=== PATIENT | female | born 2000 | race Caucasian/White ===

== ENCOUNTER 2021-01-10 12:43 | Emergency (ER) | payer OTHER ==
[~2021-01-10] VITALS: Ht 167.6 cm; Wt 80.0 kg
[2021-01-10] MEDS ORDERED: TEST200I15 IM (13:00)
[2021-01-10] MEDS ORDERED: DERMABOND TOPICAL SKIN ADHESIVE TOP ONE (15:45)
[2021-01-10] MEDS ORDERED: BOOSTRIX/ADACEL VACCINE (DIPHTH/PERTUSS/ACELL/TETANUS) 0.5ML SYR IM ONE (15:45)
[2021-01-10 16:11] VITALS: BP 126/73
== END 2021-01-10 16:17 | disposition home or self-care (01) ==
LOC: M ED 12:43
DX: S61.213A Laceration without foreign body of left middle finger without damage to nail, initial encounter (principal); W26.8XXA Contact with other sharp object(s), not elsewhere classified, initial encounter; Y92.511 Restaurant or cafe as the place of occurrence of the external cause; Y93.G1 Activity, food preparation and clean up; Y99.0 Civilian activity done for income or pay; Z79.890 Hormone replacement therapy; Z91.048 Other nonmedicinal substance allergy status

== ENCOUNTER → 2021-07-13 | Outpatient (REF) | payer OTHER, MEDICAID ==
[~2021-07-13] MED LIST: TEST200I15 IM
== END ==
LOC: M LAB REF 12:00
PROVIDERS: ATTEND Physician Assistant Medical
DX: J02.9 Acute pharyngitis, unspecified (principal)

== ENCOUNTER → 2021-10-13 | Outpatient (CLI) | payer OTHER, MEDICAID | LOC: M SLEEP 20:00 | PROVIDERS: ATTEND Physician Assistant | DX: R40.0 Somnolence (principal); R06.83 Snoring ==

== ENCOUNTER → 2021-12-11 | Outpatient (CLI) | payer OTHER, MEDICAID ==
[~2021-12-11] MED LIST changes: +BUPR150T12 PO; +GOOD8.6T2 PO; +LEVO75TA4 PO; +TOPI25TA10 PO
== END ==
LOC: M LABSMTC 10:49
PROVIDERS: ATTEND Anesthesiology
DX: Z01.818 Encounter for other preprocedural examination (principal); Z11.52 Encounter for screening for COVID-19

== ENCOUNTER 2021-12-16 06:09 | Observation (INO) | payer OTHER, MEDICAID ==
[~2021-12-16] VITALS: Ht 167.6 cm; Wt 75.7 kg
[2021-12-16] VITALS (7 sets, daily range): BP systolic 112–138; BP diastolic 61–81
[~2021-12-16 06:09] MED LIST changes: +ceFAZolin SOD 2 GM in IV 1 EA IV ONE
[2021-12-16] MEDS ORDERED: BUPIVACAINE HCL 0.25% 10ML VIAL As Ordered ONE (07:16)
[2021-12-16] MEDS ORDERED: GENTAMICIN SULF 80MG/2ML VIAL As Ordered ONE (07:16)
[2021-12-16] MEDS ORDERED: BUPIVACAINE LIPOSOME/PF 1.3% 20ML VIAL (13.3MG/ML)(EXPAREL) As Ordered ONE (07:16)
[2021-12-16] MEDS ORDERED: LR 1,000 ML IV SCH ×2 (07:20→11:15)
[2021-12-16] MEDS ORDERED: INSULIN LISPRO (NovoLOG) PER UNIT SC PRN ×2 (07:20→11:15)
[2021-12-16] MEDS ORDERED: propofoL 200 MG/20 ML VIAL As Ordered ONE (07:27)
[2021-12-16] MEDS ORDERED: dexameTHASONE 4 MG/ML 1ML VIAL (J1100 PER 1MG) As Ordered ONE (07:27)
[2021-12-16] MEDS ORDERED: LIDOCAINE 2% 100MG/5ML SDV (FOR ANES.) As Ordered ONE (07:27)
[2021-12-16] MEDS ORDERED: ROCURONIUM BROMIDE 50 MG/5 ML VIAL As Ordered ONE ×2 (07:27→08:38)
[2021-12-16] MEDS ORDERED: ONDANSETRON 4MG/2ML VIAL As Ordered ONE (07:27)
[2021-12-16] MEDS ORDERED: fentaNYL 250 MCG/5 ML INJECTION As Ordered ONE (07:28)
[2021-12-16] MEDS ORDERED: MIDAZOLAM INJ 2MG/2ML VIAL (J2250 PER 1MG) As Ordered ONE (07:29)
[2021-12-16] MEDS ORDERED: HEPARIN SOD (PORCINE) 5000UNITS/ML 1ML VIAL/SYRINGE As Ordered ONE (07:49)
[2021-12-16] MEDS ORDERED: SUGAMMADEX SODIUM 500 MG/5 ML VIAL (BRIDION) As Ordered ONE (08:40)
[2021-12-16] MEDS ORDERED: HYDROmorphone HCL 2MG/ML 1ML VIAL As Ordered ONE (08:40)
[2021-12-16] MEDS ORDERED: LACRILUBE (AKWA TEARS) OPHTH OINT 3.5 GM As Ordered ONE (08:40)
[2021-12-16] MEDS ORDERED: PHENYLephrine 500MCG 5ML (100MCG/ML) SYRINGE As Ordered ONE (08:46)
[2021-12-16] MEDS ORDERED: SEVOFLURANE INHAL SOLN 250 ML BTL As Ordered ONE (08:48)
[2021-12-16] MEDS ORDERED: ACETAMINOPHEN 1000MG 100ML IV BTL (OFIRMEV) (J0131 PER 10MG) As Ordered ONE (08:48)
[2021-12-16] MEDS ORDERED: ONDANSETRON 4MG/2ML VIAL IV PRN ×2 (11:10→11:15)
[2021-12-16] MEDS ORDERED: traMADol 50 MG TAB PO PRN (11:10)
[2021-12-16] MEDS ORDERED: KETOROLAC TROMETHAMINE 10 MG TAB PO PRN (11:10)
[2021-12-16] MEDS ORDERED: ACETAMINOPHEN TAB 650MG DOSE (2X325MG) PO PRN (11:10)
[2021-12-16] MEDS ORDERED: METOCLOPRAMIDE INJ 10MG/2ML VIAL (J2765 PER 1) IV PRN (11:15)
[2021-12-16] MEDS ORDERED: HYDROMORPHONE HCL 0.5 MG/ 0.5 ML SYRINGE (J1170 PER 1) IV PRN (11:15)
[2021-12-16] MEDS ORDERED: oxyCODONE 5MG TAB PO PRN (11:15)
[2021-12-16] MEDS ORDERED: fentaNYL 100 MCG/2 ML INJECTION IV PRN (11:15)
[2021-12-16] MEDS: LR 1,000 ML IV SCH (13:50)
[2021-12-16] MEDS ORDERED: ceFAZolin SOD 1 GM in D5W MINI-BAG PLUS 50 ML IV ONE (16:00)
[2021-12-17] MEDS: LR 1,000 ML IV SCH (00:09)
[2021-12-17 02:15] VITALS: BP 118/72
[2021-12-17 05:12] VITALS: BP 111/62
[2021-12-17] MEDS ORDERED: TRAM50TA2 PO (09:49)
== END 2021-12-17 12:15 | disposition home or self-care (01) ==
LOC: M SDC 06:09 → M MS5PR 06:10
PROVIDERS: ADMIT Plastic Surgery Surgery of the Hand; ATTEND Plastic Surgery Surgery of the Hand
DX: F64.9 Gender identity disorder, unspecified (principal); N62 Hypertrophy of breast; J30.2 Other seasonal allergic rhinitis; E06.3 Autoimmune thyroiditis; Z79.899 Other long term (current) drug therapy; Z79.890 Hormone replacement therapy
CPT/HCPCS: 19303; 19350; 81025; 88305; 96374; C9290; J0131; J0690; J1100; J1170; J1580; J1644; J2250; J2370; J2405; J3010

== ENCOUNTER 2022-04-12 18:32 | Emergency (ER) | payer OTHER, MEDICAID ==
[~2022-04-12] VITALS: Ht 167.6 cm; Wt 75.0 kg
[~2022-04-12 18:32] MED LIST changes: +TRAM50TA2 PO; -ceFAZolin SOD 2 GM in IV 1 EA IV ONE
[2022-04-12] MEDS ORDERED: IBUPROFEN 600MG TAB PO ONE (20:35)
[2022-04-12 21:22] VITALS: BP 110/72
== END 2022-04-12 21:26 | disposition home or self-care (01) ==
LOC: M ED 18:32 → EDBD 18:32 → M ED 21:26
DX: Z04.1 Encounter for examination and observation following transport accident (principal); J45.909 Unspecified asthma, uncomplicated; E03.9 Hypothyroidism, unspecified; F32.A Depression, unspecified; F41.9 Anxiety disorder, unspecified; G43.909 Migraine, unspecified, not intractable, without status migrainosus; Z79.899 Other long term (current) drug therapy; Z79.890 Hormone replacement therapy; Z79.3 Long term (current) use of hormonal contraceptives

== ENCOUNTER → 2022-05-29 | Outpatient (CLI) | payer OTHER, MEDICAID | LOC: M RAD 10:34 | PROVIDERS: ATTEND Family Medicine | DX: R10.9 Unspecified abdominal pain (principal); Z53.9 Procedure and treatment not carried out, unspecified reason ==

== ENCOUNTER → 2022-06-08 | Outpatient (CLI) | payer OTHER, MEDICAID | LOC: M PLAIMG 08:15 | PROVIDERS: ATTEND Family Medicine | DX: G44.89 Other headache syndrome (principal) ==

== ENCOUNTER → 2022-07-15 | Outpatient (CLI) | payer OTHER, MEDICAID ==
[~2022-07-15] MED LIST changes: +E-Z-GAS II EFFERVESCENT PACKET (SODIUM BICARB./CITRIC ACID/SIMETHICONE) As Ordered ONE; +E-Z-HD 98% w/w 340GM SUSP BTL As Ordered ONE; +E-Z-PAQUE 96% w/w SUSP 176GM BTL As Ordered ONE
== END ==
LOC: M RAD 08:31
PROVIDERS: ATTEND Family Medicine
DX: M54.9 Dorsalgia, unspecified (principal); R10.9 Unspecified abdominal pain

== ENCOUNTER 2024-07-24 12:00 | Inpatient (IN) | payer OTHER, MEDICAID ==
[~2024-07-24] VITALS: Ht 167.6 cm; Wt 58.2 kg
[~2024-07-24 12:00] MED LIST changes: -E-Z-GAS II EFFERVESCENT PACKET (SODIUM BICARB./CITRIC ACID/SIMETHICONE) As Ordered ONE; -E-Z-HD 98% w/w 340GM SUSP BTL As Ordered ONE; -E-Z-PAQUE 96% w/w SUSP 176GM BTL As Ordered ONE; -GOOD8.6T2 PO; +SENN-117 PO
[2024-07-24 13:06] LABS: HEMATOCRIT 40.3 % (42.0-52.0); HEMOGLOBIN 13.6 g/dl (13.5-17.5); MEAN CORPUSCULAR HGB CONC 33.7 g/dl (32.0-36.5); MEAN CORPUSCULAR VOLUME 91.8 fl (80.0-96.0); PLATELET COUNT, AUTOMATED 246 10^3/uL (150-450); RED BLOOD COUNT 4.39 10^6/uL (4.30-6.10); WHITE BLOOD COUNT 5.8 10^3/uL (4.0-10.0)
[2024-07-24 13:40] LABS: ETHYL ALCOHOL (ETHANOL) < 0.003 % (0.000-0.010); SALICYLATE LEVEL < 3.0 MG/DL (<30)
[2024-07-24 13:41] LABS: ALBUMIN 4.3 G/DL (3.2-5.2); ALKALINE PHOSPHATASE 71 U/L (40-129); ALT/SGPT 14 U/L (7.0-40); AST/SGOT 12 U/L (<34); BILIRUBIN,DIRECT 0.4 MG/DL (<0.4); BILIRUBIN,TOTAL 1.2 MG/DL (0.3-1.2); BLOOD UREA NITROGEN 10 MG/DL (9-23); CARBON DIOXIDE LEVEL 28 MMOL/L (20-31); CHLORIDE LEVEL 105 MMOL/L (98-107); GLOMERULAR FILTRATION RATE > 60.0 (>60); GLUCOSE, FASTING 94 MG/DL (60-100); POTASSIUM SERUM 4.3 MMOL/L (3.5-5.1); SODIUM LEVEL 142 MMOL/L (136-145); TOTAL PROTEIN 7.5 G/DL (5.7-8.2)
[2024-07-24 13:43] LABS: THYROID STIMULATING HORMONE 0.904 uIU/ML (0.55-4.78)
[2024-07-24 14:29] LABS: AMPHETAMINES LEVEL URINE NEGATIVE (NEGATIVE); BARBITURATES URINE NEGATIVE (NEGATIVE); CANNABINOIDS URINE NEGATIVE (NEGATIVE); COCAINE METABOLITE URINE NEGATIVE (NEGATIVE); METHADONE URINE NEGATIVE (NEGATIVE); OPIATES URINE NEGATIVE (NEGATIVE); PHENCYCLIDINE URINE NEGATIVE (NEGATIVE)
[2024-07-24 14:30] LABS: BENZODIAZEPINES URINE NEGATIVE (NEGATIVE)
[2024-07-24] MEDS ORDERED: MAALOX 30 ML SUSP *UDC PO PRN (16:05)
[2024-07-24] MEDS ORDERED: traZODone 50 MG TAB PO PRN (16:05)
[2024-07-24] MEDS ORDERED: diphenhydrAMINE 25MG CAP PO PRN (16:05)
[2024-07-24] MEDS ORDERED: MOM 30ML SUSPENSION UDC PO PRN (16:05)
[2024-07-24] MEDS ORDERED: HOME MED LIST COMPLETE! XX SCH (16:35)
[2024-07-24 20:45] VITALS: BP 143/75; TEMP 97.6; O2SAT 100
[2024-07-25 06:38] VITALS: BP 115/55; TEMP 97.6; O2SAT 98
[2024-07-25 14:39] VITALS: BP 133/73; TEMP 98.2; O2SAT 99
[2024-07-25] MEDS ORDERED: ALBUTEROL 90 MCG/ACT 8GM HFA INHALER INH PRN (15:00)
[2024-07-25] MEDS: TESTOSTERONE ENANTHATE IM ONE (21:24)
[2024-07-25] MEDS: NICOTINE 21MG/24HR 1 EA TRANSDERMAL TD PRN (21:30)
[2024-07-25] MEDS: ACETAMINOPHEN 325 MG TAB PO PRN (21:30)
[2024-07-26 06:43] VITALS: BP 128/76; TEMP 97.3; O2SAT 100
[2024-07-26] MEDS ORDERED: OLANZapine ORAL DISINTEGRATING TAB 5MG PO PRN (09:50)
[2024-07-26 16:32] VITALS: BP 125/63; TEMP 98.1; O2SAT 98
[2024-07-26] MEDS: MIRTAZAPINE 7.5MG PER 1/2 TABLET PO SCH (21:25)
[2024-07-27 06:39] VITALS: BP 105/59; TEMP 97.6; O2SAT 99
[2024-07-27 15:25] VITALS: BP 116/71; TEMP 97.9; O2SAT 100
[2024-07-28 06:40] VITALS: BP 95/54; TEMP 97.4; O2SAT 100
[2024-07-28] MEDS: IBUPROFEN 400MG TAB PO PRN (10:35)
[2024-07-28 16:15] VITALS: BP 144/88; TEMP 98.6; O2SAT 99
[2024-07-29 06:32] VITALS: BP 112/57; TEMP 97.5; O2SAT 98
[2024-07-29 16:47] VITALS: BP 135/80; TEMP 98.7; O2SAT 100
[2024-07-30 06:23] VITALS: BP 105/54; TEMP 97.3; O2SAT 98
[2024-07-30] MEDS: NICOTINE 21MG/24HR 1 EA TRANSDERMAL TD SCH (11:02)
[2024-07-31 06:33] VITALS: BP 110/54; TEMP 97.9; O2SAT 98
[2024-07-31] MEDS ORDERED: MIRT-10 PO (11:43)
== END 2024-07-31 14:04 | disposition home or self-care (01) | DRG 881 ==
LOC: EEVIPCON 12:00 → M ED 12:00 → M ED INP 16:05 → M PSY 20:43
PROVIDERS: ADMIT Psychiatry & Neurology Psychiatry; ATTEND Psychiatry & Neurology Psychiatry
DX: F32.A Depression, unspecified (principal); R45.851 Suicidal ideations; F43.10 Post-traumatic stress disorder, unspecified; F41.1 Generalized anxiety disorder; J45.909 Unspecified asthma, uncomplicated; G43.909 Migraine, unspecified, not intractable, without status migrainosus; E03.9 Hypothyroidism, unspecified; F17.200 Nicotine dependence, unspecified, uncomplicated; Z62.810 Personal history of physical and sexual abuse in childhood; Z79.890 Hormone replacement therapy; Z63.0 Problems in relationship with spouse or partner; Z56.6 Other physical and mental strain related to work; Z91.51 Personal history of suicidal behavior; Z91.52 Personal history of nonsuicidal self-harm

== ENCOUNTER 2025-02-10 08:28 | Emergency (ER) | payer OTHER ==
[~2025-02-10] VITALS: Ht 165.1 cm; Wt 61.4 kg
[~2025-02-10 08:28] MED LIST changes: +MIRT-10 PO; +TOPI-256 PO; -TOPI25TA10 PO
[2025-02-10] MEDS ORDERED: VENL37.598 (08:37)
[2025-02-10 09:26] LABS: BASO # 0.1 10^3/uL (0.0-0.2); BASO % 1.4 % (0.0-1.0); EOS # 0.1 10^3/uL (0.0-0.5); EOS % 2.8 % (0.0-3.0); LYMPH # 1.5 10^3/uL (1.5-5.0); LYMPH % 28.8 % (24.0-44.0); MONO # 0.5 10^3/uL (0.0-0.8); MONO % 9.1 % (2.0-8.0); NEUTROPHILS # 2.9 10^3/uL (1.5-8.5); NEUTROPHILS % 57.7 % (36.0-66.0); PLATELET COUNT, AUTOMATED 240 10^3/uL (150-450)
[2025-02-10 09:47] LABS: CALCIUM LEVEL 8.7 MG/DL (8.5-10.1); CARBON DIOXIDE LEVEL 29 MMOL/L (20-31); CHLORIDE LEVEL 107 MMOL/L (98-107); CREATININE FOR GFR 0.89 MG/DL (0.70-1.30); GLOMERULAR FILTRATION RATE > 90.0 (>60); POTASSIUM SERUM 4.4 MMOL/L (3.5-5.1); SODIUM LEVEL 144 MMOL/L (136-145)
[2025-02-10 09:50] LABS: HCG, SERUM QUALITATIVE NEGATIVE
[2025-02-10] MEDS ORDERED: DICY-61 PO (10:34)
[2025-02-10 10:45] VITALS: BP 100/56; TEMP 97.7; O2SAT 99
[2025-02-10] MEDS: DICYCLOMINE INJ 20 MG/2 ML IM ONE (10:53)
== END 2025-02-10 10:57 | disposition home or self-care (01) ==
LOC: M ED 08:28
DX: K58.9 Irritable bowel syndrome, unspecified (principal); K21.9 Gastro-esophageal reflux disease without esophagitis; Z91.09 Other allergy status, other than to drugs and biological substances; Z79.899 Other long term (current) drug therapy; Z79.890 Hormone replacement therapy
CPT/HCPCS: 80048; 84703; 85025; 96372; 99284; J0500